=== PATIENT | male | born 1960 | race Caucasian/White ===

== ENCOUNTER 2016-10-06 22:47 | Emergency (ER) | payer OTHER ==
--- NOTE | ~2016-10-06 | EKG ---
PATIENT: JUNIOR LORRAINE UNIT #: [id number] Ventricular Rate: 88 BPM Atrial Rate: 88 BPM P-R Interval: 138 ms QRS Duration: 92 ms Q-T Interval: 366 ms QTC Calculation(Bezet): 442 ms P [place]: 75 degrees Calculated R [place]: -70 degrees Calculated T [place]: 62 degrees Diagnosis Line: Normal sinus rhythm Diagnosis Line: Incomplete right bundle branch block Diagnosis Line: Left anterior fascicular block Diagnosis Line: Abnormal ECG Diagnosis Line: When compared with ECG of 06-OCT-2016 22:34, Diagnosis Line: (unconfirmed) Diagnosis Line: No significant change was found Diagnosis Line: Confirmed by ISIS MARIN MD ([id number]) on 10/09/2016 Diagnosis Line: 9:43:05 AM INTERPRETING MD: TANIA WRIGHT
--- NOTE | ~2016-10-06 | CR72 ---
[facility] A Service of [facility] RADIOLOGY TEXT RESULTS PATIENT: JUNIOR Charleen PETERS LOCATION: [facility] : 62 UNIT #: [id number] AGE: [address]: Ady Mohr MD SEX: M ORDER DR: [id number] [facility] [address] [place], [place] [address] [id number] E MR#: [id number] #: [id number] NAME: JUNIOR Charleen PETERS. : 1960 SEX: M STUDY DATE/TIME: 10/06/2016 21:06 UNIT: [facility] ROOM: STUDY DESCRIPTION: CR Chest Single View Portable Attending Physician: Ady Mohr M.D. Ordering Physician: Ed Doctor [id number] [facility] Primary Care Physician: [facility] MEDICAL IMAGING REPORT This report is preliminary unless electronic signature is present EXAM Portable chest 10/06/2016 HISTORY Shortness of breath and chest congestion for 2 days. Benign essential hypertension and smoking history for 20 years. FINDINGS A single AP portable view of the chest shows both lungs to be clear. The heart is normal in size. The mediastinal contour is normal. No significant bone abnormalities are seen. IMPRESSION Normal portable chest. Dictated by... Aaron Muse M.D. THIS IS AN ELECTRONICALLY VERIFIED REPORT Aaron Muse M.D. at 10/07/2016 10:47 AM NATALYA/garrison TD: 10/07/2016 08:46 JOB #: [id number] MEDICAL IMAGING REPORT Page 1 of 1 COPY
[2016-10-06 21:41] LABS: BASOPHIL# 0.1 X10e3 (0-0.3); BASOPHIL% 0.6 % (0-2.5); EOSINOPHIL# 0.7 X10e3 (0-0.7); EOSINOPHIL% 8.5 % (0.0-7.0); HEMATOCRIT 44.3 % (38.0-50.0); HEMOGLOBIN 14.8 gm/dL (13.0-16.0); LYMPHOCYTE# 2.2 X10e3 (1.0-3.5); LYMPHOCYTE% 25.4 % (17.0-45.0); MEAN CELL VOLUME 92.9 FL (83-96); MEAN CORPUSCULAR HEMOGLOBIN 31.1 PG (28-34); MEAN CORPUSCULAR HGB CONC 33.5 g/dL (30-36); MEAN PLATELET VOLUME 9.1 FL (6.5-11.5); MONOCYTE# 0.9 X10e3 (0-1.0); MONOCYTE% 10.4 % (3.0-12.0); NEUTROPHIL# 4.7 X10e3 (1.5-7.1); NEUTROPHIL% 55.1 % (40-75); PLATELET COUNT 234 X10e3 (140-420); RED BLOOD COUNT 4.77 X10e (3.90-5.60); RED CELL DISTRIBUTION WIDTH 14.3 % (11.0-15.5); WHITE BLOOD COUNT 8.5 X10e3 (4.0-10.5)
[2016-10-06 21:43] LABS: DIFF IND NO
[2016-10-06 22:11] LABS: ALBUMIN SERUM 4.2 g/dL (3.5-5.0); BILIRUBIN, DIRECT 0.1 mg/dL (0.0-0.2); BILIRUBIN,INDIRECT 0.4 mg/dL (0.0-0.9); BILIRUBIN,TOTAL 0.5 mg/dL (0.2-2.0); BUN/CREATININE RATIO 10.9; CALCIUM SERUM 9.2 mg/dL (8.4-10.2); CREATININE SERUM 1.1 mg/dL (0.6-1.4); GLOM FILT RATE Estimated 75.7 mL/min (>60); POTASSIUM 4.3 mmol/L (3.5-5.1); PROTEIN TOTAL SERUM 7.7 g/dL (6.0-8.3)
[~2016-10-06 22:47] MED LIST: ALBUTEROL17 GM INH; AMLODIPINE BESYL5 MG PO; AMOXICILLIN500 M1 PO; FLEXERIL10 MG PO; HYCODAN60 ML 5MG/ PO; NO MEDICATIONS; PREDNISONE PO; VOLTAREN75 MG PO
[2016-10-06 23:30] LABS: POC - CKMB 2.1 ng/mL (0.0-7.9); POC - TROPONIN <0.05 ng/mL (<=0.05)
[2016-10-06 23:33] LABS: INR 0.9; PROTHROMBIN TIME (PATIENT) 9.8 SECONDS (9.6-11.5)
[2016-10-06 23:44] LABS: PARTIAL THROMBOPLASTIN TIME <20.0 SECONDS (23.5-31.3)
[2016-10-06 23:56] LABS: D DIMER 480 NG/ML (45-500)
[2016-10-07 00:25] LABS: POC - CKMB 1.8 ng/mL (0.0-7.9); POC - TROPONIN <0.05 ng/mL (<=0.05)
[2016-10-07 01:08] LABS: ARTERIAL BLD GAS O2 SATURATION 90.7 % (90.0-100.0); ARTERIAL BLOOD GAS CARBOXY HB 3.1 %sat (0.0-9.0); ARTERIAL BLOOD GAS HCO3 29.9 mmol/L; ARTERIAL BLOOD GAS MET HB 0.7 %sat (0.0-2.0); ARTERIAL BLOOD GAS PCO2 46.5 mmHg (35.0-45.0); ARTERIAL BLOOD GAS pH 7.417 (7.350-7.450)
[2016-10-07 01:10] LABS: ARTERIAL BLOOD GAS ALLEN TEST NORMAL; ARTERIAL BLOOD GAS ART SITE RIGHT RADIAL; ARTERIAL BLOOD GAS DELIVERY NASAL CANNULA; ARTERIAL DRAW? YES
== END 2016-10-07 03:00 | disposition home or self-care (01) ==
LOC: CED 22:47
PROVIDERS: Emergency Medicine
DX: J44.1 Chronic obstructive pulmonary disease with (acute) exacerbation (principal); F17.200 Nicotine dependence, unspecified, uncomplicated
CPT/HCPCS: 36415; 36600; 71010; 80048; 80076; 82553; 82803; 84484; 85025; 85379; 85610; 85730; 87040; 93005; 94640; 96374; 99284; J2930

== ENCOUNTER 2016-10-18 19:27 | Emergency (ER) | payer OTHER | END 2016-10-18 21:23 | disposition left against medical advice (07) | LOC: CED 19:27 | DX: Z53.21 Procedure and treatment not carried out due to patient leaving prior to being seen by health care provider (principal) ==

== ENCOUNTER 2016-10-23 09:35 | Emergency (ER) | payer OTHER ==
--- NOTE | ~2016-10-23 | EKG ---
PATIENT: JUNIOR LORRAINE UNIT #: [id number] Ventricular Rate: 81 BPM Atrial Rate: 81 BPM P-R Interval: 144 ms QRS Duration: 88 ms Q-T Interval: 372 ms QTC Calculation(Bezet): 432 ms P [place]: 77 degrees Calculated R [place]: -58 degrees Calculated T [place]: 50 degrees Diagnosis Line: Normal sinus rhythm Diagnosis Line: Leftward axis Diagnosis Line: Borderline ECG Diagnosis Line: When compared with ECG of 06-OCT-2016 22:35, Diagnosis Line: Incomplete right bundle branch block is no longer Diagnosis Line: Present Diagnosis Line: Confirmed by ISIS MARIN MD ([id number]) on 10/24/2016 Diagnosis Line: 6:00:20 PM INTERPRETING MD: TANIA WRIGHT
--- NOTE | ~2016-10-23 | CR63 ---
[facility] A Service of [facility] RADIOLOGY TEXT RESULTS PATIENT: JUNIOR Charleen PETERS LOCATION: [facility] : 62 UNIT #: [id number] AGE: [address]: Kermit Marshall MD SEX: M ORDER DR: [id number] [facility] [address] [place], [place] [address] [id number] E MR#: [id number] Acc #: [id number] NAME: JUNIOR LORRAINE : 1960 SEX: M STUDY DATE/TIME: 10/23/2016 UNIT: [facility] ROOM: STUDY DESCRIPTION: CR Chest 2 View Attending Physician: Kermit Marshall M.D. Ordering Physician: Kermit Marshall M.D. Primary Care Physician: Julia Elkins [facility] MEDICAL IMAGING REPORT This report is preliminary unless electronic signature is present EXAM Chest 2 views 10/23/2016 11:10 hours CLINICAL HISTORY 55-year-old man with history of colon carcinoma complaining of cough and shortness of air for 1 month. COMPARISON 10/06/2016 FINDINGS Upright PA and lateral views of the chest demonstrate normal cardiac, mediastinal and hilar contours. The lungs are well expanded and clear. There is no effusion. There is mild eventration of the anterior right hemidiaphragm which is unchanged. IMPRESSION No acute cardiopulmonary findings. No change from 10/06/2016. Dictated by... Nahomy Nair M.D. THIS IS AN ELECTRONICALLY VERIFIED REPORT Nahomy Nair M.D. at 10/23/2016 2:29 PM SMM/aries TD: 10/23/2016 14:00 JOB #: [id number] MEDICAL IMAGING REPORT Page 1 of 1 COPY
== END 2016-10-23 14:15 | disposition home or self-care (01) ==
LOC: CED 09:35
DX: J20.9 Acute bronchitis, unspecified (principal); I10 Essential (primary) hypertension; F17.200 Nicotine dependence, unspecified, uncomplicated; Z79.899 Other long term (current) drug therapy
CPT/HCPCS: 71020; 93005; 94640; 99284